=== PATIENT | male | born 1975 | race Caucasian/White ===

== ENCOUNTER → 2025-05-28 18:20 | Outpatient (REF) | payer OTHER, SELFPAY | LOC: MRI 3T 18:20 | PROVIDERS: ATTENDING PHYSICIAN Urology; PRIMARYCARE PHYSICIAN Family Medicine | DX: R10.2 Pelvic and perineal pain (principal); R14.0 Abdominal distension (gaseous); N31.9 Neuromuscular dysfunction of bladder, unspecified; R27.8 Other lack of coordination; N32.81 Overactive bladder; N31.8 Other neuromuscular dysfunction of bladder | CPT/HCPCS: 72197; A9575 ==

== ENCOUNTER 2025-07-09 06:17 | Day surgery (SDC) | payer OTHER, SELFPAY ==
[2025-07-09 09:40] VITALS: BMI 18.7
[2025-07-09 09:41] VITALS: BMI 18.7
[2025-07-09 09:43] VITALS: BP 122/78
[2025-07-09 12:15] VITALS: BP 155/56
[2025-07-09 12:30] VITALS: BP 117/80
[2025-07-09 12:45] VITALS: BP 120/77
== END 2025-07-09 13:30 | disposition home or self-care (01) ==
LOC: SDS 06:17
PROVIDERS: ATTENDING PHYSICIAN Internal Medicine
DX: Z12.11 Encounter for screening for malignant neoplasm of colon (principal); D12.4 Benign neoplasm of descending colon; K63.89 Other specified diseases of intestine; R10.20 Pelvic and perineal pain unspecified side; Q43.8 Other specified congenital malformations of intestine; K64.8 Other hemorrhoids; K31.89 Other diseases of stomach and duodenum; R10.13 Epigastric pain
CPT/HCPCS: 45385; 45380; 43239; 88305; 88342

== ENCOUNTER → 2025-07-15 13:14 | Outpatient (REF) | payer OTHER, SELFPAY | LOC: RAD 13:14 | PROVIDERS: ATTENDING PHYSICIAN Urology; FAMILY PHYSICIAN Family Medicine | DX: N31.8 Other neuromuscular dysfunction of bladder (principal); N31.9 Neuromuscular dysfunction of bladder, unspecified; R10.20 Pelvic and perineal pain unspecified side | CPT/HCPCS: 76775; 88305; 88342 ==